=== PATIENT | female | born 1975 | race American Indian/Alaskan Native ===

== ENCOUNTER 2019-11-16 09:24 | Emergency (ER) | payer SELFPAY ==
[2019-11-16 09:30] VITALS: BP 121/76
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
== END 2019-11-16 11:19 | disposition home or self-care (01) ==
LOC: ED 09:24
DX: K08.89 Other specified disorders of teeth and supporting structures (principal); L50.8 Other urticaria; J45.909 Unspecified asthma, uncomplicated
CPT/HCPCS: 99281

== ENCOUNTER 2020-06-17 12:18 | Emergency (ER) | payer MEDICAID ==
[2020-06-17 12:26] VITALS: BP 139/87
[2020-06-17] MEDS ORDERED: dexAMETHasone 4 MG/ML VIAL IM ONE (12:26)
[2020-06-17] MEDS ORDERED: FAMOTIDINE 20 MG TAB PO ONE (12:26)
[2020-06-17] MEDS ORDERED: diphenhydrAMINE 50 MG/ML VIAL IV STA (12:26)
[2020-06-17] MEDS ORDERED: SODIUM CHLORIDE 0.9% 1000 ML 1,000 ML IV ONE (12:26)
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
[2020-06-17 12:52] LABS: Basophils % (Auto) 0.5 % (0.0-1.8); Eosinophils # (Auto) 0.1 K/mm3 (0.0-0.4); Eosinophils % (Auto) 2.1 % (0.0-4.3); Lymphocytes # (Auto) 1.5 K/mm3 (1.2-5.4); Lymphocytes % (Auto) 44.2 % (13.4-35.0); Mean Corpuscular HGB Conc 33 % (30-34); Mean Corpuscular Volume 82 fl (79-97); Monocytes # (Auto) 0.2 K/mm3 (0.0-0.8); Monocytes % (Auto) 5.5 % (0.0-7.3); Platelet Count 333 K/mm3 (140-440); Red Blood Count 4.41 M/mm3 (3.65-5.03); Red Cell Distribution Width 16.1 % (13.2-15.2)
[2020-06-17 13:07] LABS: BUN/Creatinine Ratio 15; Blood Urea Nitrogen 12 mg/dL (7-17); Calcium 8.7 mg/dL (8.4-10.2); Hemolysis Index 10
== END 2020-06-17 14:21 | disposition home or self-care (01) ==
LOC: ED 12:18
DX: T78.40XA Allergy, unspecified, initial encounter (principal); J45.909 Unspecified asthma, uncomplicated; Z79.899 Other long term (current) drug therapy
CPT/HCPCS: 36415; 80048; 85025; 96361; 96372; 96374; 99283; J1100; J1200; J7030

== ENCOUNTER 2020-06-25 12:27 | Emergency (ER) | payer MEDICAID ==
--- NOTE | 2020-06-25 12:59 | Event Note ---
ED Screening Note Date of service: 06/25/20 Time: 12:55 ED Screening Note: pt presents to ED with c/o tingling sensation in legs (from knee down to feet). Onset about 6 mths. She states tingling is typically intermittent and brief but this morning last longer than nl. She has also had tingling in arms and hands which has also been chronic but she states her feet/legs are worse. She reports heaviness in head yesterday. She denies neck or back pain. She denies abd pain, or chest pain. She has hx of asthma and therefore has chronic SOB. She reports no weakness/speech changes or vision changes., She states she is from [place]. She recently moved here. She has not seen a provider for her symptoms since it started but She had an appt with PCP about 2 weeks ago for her symptoms but when she went they told her office was closing down. She states she was dx with pre DM in [place]. Other than asthma, she denies any other sig pmhx This initial assessment/diagnostic orders/clinical plan/treatment(s) is/are subject to change based on patients health status, clinical progression and re- assessment by fellow clinical providers in the ED. Further treatment and workup at subsequent clinical providers discretion. Patient/guardian urged not to elope from the ED as their condition may be serious if not clinically assessed and managed. Initial orders include: labs
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
[2020-06-25 13:43] LABS: Basophils % (Auto) 0.5 % (0.0-1.8); Eosinophils # (Auto) 0.2 K/mm3 (0.0-0.4); Eosinophils % (Auto) 3.9 % (0.0-4.3); Hematocrit 35.7 % (30.3-42.9); Hemoglobin 11.8 gm/dl (10.1-14.3); Lymphocytes # (Auto) 1.9 K/mm3 (1.2-5.4); Lymphocytes % (Auto) 34.6 % (13.4-35.0); Mean Corpuscular HGB Conc 33 % (30-34); Mean Corpuscular Volume 80 fl (79-97); Monocytes # (Auto) 0.2 K/mm3 (0.0-0.8); Platelet Count 375 K/mm3 (140-440); Red Blood Count 4.46 M/mm3 (3.65-5.03); Red Cell Distribution Width 16.4 % (13.2-15.2)
[2020-06-25 14:08] LABS: Alanine Aminotransferase 9 units/L (7-56); Albumin 3.9 g/dL (3.9-5); BUN/Creatinine Ratio 12; Blood Urea Nitrogen 11 mg/dL (7-17); Calcium 8.7 mg/dL (8.4-10.2); Hemolysis Index 2
[2020-06-25 15:02] LABS: Bacteria,Urine 1+ /HPF (Negative); Bilirubin,Urine NEG (Negative); Blood,Urine NEG (Negative); Color,Urine Yellow (Yellow)
[2020-06-25 15:17] VITALS: BP 129/77
== END 2020-06-25 15:19 | disposition home or self-care (01) ==
LOC: ED 12:27
DX: G62.9 Polyneuropathy, unspecified (principal); J45.909 Unspecified asthma, uncomplicated; Z98.890 Other specified postprocedural states; Z79.899 Other long term (current) drug therapy
CPT/HCPCS: 36415; 80053; 81001; 83735; 84443; 84703; 85025

== ENCOUNTER 2020-08-28 23:35 | Emergency (ER) | payer MEDICAID ==
[2020-08-29] MEDS ORDERED: HYDROcodone/ACETAMINOPHEN 5-325 MG TAB PO STA (01:29)
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
[2020-08-29 02:37] VITALS: BP 129/84
== END 2020-08-29 02:15 | disposition home or self-care (01) ==
LOC: ED 23:35
DX: K02.9 Dental caries, unspecified (principal); K08.89 Other specified disorders of teeth and supporting structures; J45.909 Unspecified asthma, uncomplicated; Z98.890 Other specified postprocedural states; Z79.899 Other long term (current) drug therapy
CPT/HCPCS: 99282

== ENCOUNTER 2020-09-26 18:10 | Emergency (ER) | payer MEDICAID ==
[2020-09-26 18:40] VITALS: BP 114/74
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
== END 2020-09-26 20:38 | disposition home or self-care (01) ==
LOC: ED 18:10
DX: K02.9 Dental caries, unspecified (principal); K05.10 Chronic gingivitis, plaque induced; J45.909 Unspecified asthma, uncomplicated; Z98.890 Other specified postprocedural states; Z79.2 Long term (current) use of antibiotics; Z79.899 Other long term (current) drug therapy
CPT/HCPCS: 99281

== ENCOUNTER 2021-08-18 05:29 | Emergency (ER) | payer MEDICAID ==
[2021-08-18 05:39] VITALS: BP 122/83
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
== END 2021-08-18 07:50 | disposition home or self-care (01) ==
LOC: ED 05:29
DX: S99.911A Unspecified injury of right ankle, initial encounter (principal); J45.909 Unspecified asthma, uncomplicated; Z79.899 Other long term (current) drug therapy; X58.XXXA Exposure to other specified factors, initial encounter; Y93.89 Activity, other specified; Y92.89 Other specified places as the place of occurrence of the external cause; Y99.8 Other external cause status
CPT/HCPCS: 99283